=== PATIENT | male | born 1985 | race Caucasian/White ===

== ENCOUNTER → 2016-06-15 | Outpatient (CLI) | payer BC ==
--- NOTE | 2016-06-18 09:08 | MR ---
EXAMINATION: MRI of the left knee HISTORY: Sprain COMPARISON: Radiographs dated 06/14/2016 TECHNIQUE: Multiplanar and multisequence images obtained through the left knee without contrast. FINDINGS: The patellar and quadriceps tendons are intact. The ACL is torn. PCL demonstrates increase d signal however overall appears intact. There is a complex tear of the posterior horn of the medial meniscus extending into the body. There is also a vertical radial tear of the anterior horn of the medial meniscus near the fibers insertion. There is a vertical tear of the posterior horn of the lat eral meniscus with a oblique component within the body. There is a moderate articular cartilage defe ct within the lateral compartment measuring 1 cm. There is a small joint effusion. Mild articular ca rtilage irregularity is noted within the patellofemoral compartment along the medial facet. The medi al collateral ligament appears intact, however there is moderate adjacent edema. There is edema hilario g the lateral aspect of the tibial plateau along the insertion of the anterior lateral band of the l ateral collateral ligament, this could represent a Segond type injury. The lateral collateral ligame ntous otherwise intact. There is also mild bone marrow edema within the fibular head. IMPRESSION: 1. ACL tear. 2. Complex tear of the medial meniscus with likely disruption of the fibrous attachment of the anter ior horn. 3. Posterior to body tear of the lateral meniscus. 4. Likely a Segond type injury along the lateral tibial plateau. 5. Point centimeter cartilage defect within the lateral compartment with mild buckling of the underl chris cortex of the lateral condyle. 6. Mild bone marrow edema within the fibular head. 7. Small to moderate joint effusion. 8. Mild to moderate sprain of the medial collateral ligament.
== END ==
LOC: MW.MRI 12:08
PROVIDERS: ATTEND Orthopaedic Surgery
DX: M25.562 Pain in left knee (principal); S83.92XA Sprain of unspecified site of left knee, initial encounter
CPT/HCPCS: 73721-26-LT; 73721-LT

== ENCOUNTER 2016-11-29 06:25 | Day surgery (SDC) | payer BC ==
[~2016-11-29 06:25] MED LIST: Lactated Ringers 1,000 ML IV SCH; ceFAZolin 2 GM in Premix Bag 1 BAG IV SCH
[2016-11-29] MEDS ORDERED: fentaNYL 100 MCG/2 ML SDV ONE ×2 (07:20→10:18)
[2016-11-29] MEDS ORDERED: Propofol 200 MG/20 ML SDV ONE ×2 (07:20→10:17)
[2016-11-29] MEDS ORDERED: Lidocaine 2% 5 ML SDV ONE (07:20)
[2016-11-29] MEDS ORDERED: Midazolam 1 MG/ML 2 ML SDV ONE (07:21)
[2016-11-29] MEDS ORDERED: HYDROmorphone 2 MG/ML Syringe ONE (07:30)
--- NOTE | 2016-11-29 07:31 | PCM.PREANE ---
Preanesthetic Assessment - Procedure Proposed Procedure: Knee arthroscopy - Anesthesia/Transfusion/Family Hx Anesthesia History: Prior Anesthesia Without Reaction Family History of Anesthesia Reaction: No Transfusion History: No Prior Transfusion(s) Intubation History: Unknown - Review of Systems General: No Symptoms Pulmonary: No Symptoms Cardiovascular: No Symptoms Gastrointestinal: No Symptoms Neurological: Difficulty Walking (pain in knee) Other: Reports: None - Physical Assessment NPO Status Date: 11/28/16 NPO Status Time: 23:00 Height: 5 ft 11 in Weight: 200 lb ASA Class: 1 Mental Status: Alert & Oriented x3 Dentition: Reports: Normal Dentition Thyro-Mental Finger Breadths: 3 Mouth Opening Finger Breadths: 3 ROM/Head Extension: Full Lungs: Clear to Auscultation, Normal Respiratory Effort Cardiovascular: Regular Rate, Regular Rhythm - Allergies Allergies/Adverse Reactions: Allergies Allergy/AdvReac Type Severity Reaction Status Date / Time No Known Allergies Allergy Verified 11/27/16 11:29 - Blood Blood Available: No Product(s) Available: None - Acknowledgements Anesthesia Type Planned: General Anesthesia (LMA) Pt an Appropriate Candidate for the Planned Anesthesia: Yes Alternatives and Risks of Anesthesia Discussed w Pt/Guardian: Yes Pt/Guardian Understands and Agrees with Anesthesia Plan: Yes PreAnesthesia Questionnaire - Past Health History Medical/Surgical History: Denies Medical/Surgical History - Past Surgical History Head Surgeries/Procedures: Reports: None HEENT Surgical History: Reports: Oral Surgery Other HEENT Surgeries/Procedures: wisdom teeth extraction - SUBSTANCE USE Smoking Status *Q: Never Smoker Recreational Drug Use History: No - HOME MEDS Home Medications: Home Meds . [No Known Home Meds] 11/27/16 [History] - CURRENT (IN HOUSE) MEDS Current Meds: Current Medications Hydrocodone Bitart/Acetaminophen ([place] 325-10 Mg) 1 - 2 tab PO Q4H PRN PRN Reason: Pain Cefazolin Sodium/Dextrose 2 gm (/ Premix) 50 mls @ 100 mls/hr IV ONCALL JOHNNY Lactated Ringer's (Ringers, Lactated) 1,000 mls @ 100 mls/hr IV ASDIRECTED JOHNNY Ketorolac Tromethamine (Toradol) 10 mg PO Q6H PRN PRN Reason: Pain Stop: 12/04/16 08:01 Discontinued Medications Fentanyl (Sublimaze) Confirm Administered Dose 300 mcg .ROUTE .STK-MED ONE Stop: 11/29/16 07:21 Lidocaine (Xylocaine-Mpf 2%) Confirm Administered Dose 10 ml .ROUTE .STK-MED ONE Stop: 11/29/16 07:21 Midazolam HCl (Versed 1 Mg/Ml) Confirm Administered Dose 2 mg .ROUTE .STK-MED ONE Stop: 11/29/16 07:22 Propofol (Diprivan 20 Ml) Confirm Administered Dose 400 mg .ROUTE .STK-MED ONE Stop: 11/29/16 07:21
[2016-11-29] MEDS ORDERED: Bupivacaine 0.5% 30 ML SDV ONE (07:53)
[2016-11-29] MEDS ORDERED: Lidocaine 1% 20 ML MDV ONE (07:53)
[2016-11-29] MEDS ORDERED: Acetaminophen/HYDROcodone 325-10 MG Tab PO PRN (08:00)
[2016-11-29] MEDS ORDERED: Ketorolac 10 MG Tab PO PRN (08:00)
--- NOTE | 2016-11-29 08:27 | PCM.OPNOTE ---
- General Post-Op/Procedure Note Date of Surgery/Procedure: 11/29/16 Operative Procedure(s): Left knee arthroscopy with partial medial and lateral menisectomy and arthrscopically aided ACL reconstruction with allograft Post-Op Diagnosis: Left knee medial and lateral meniscus tear, ACL tear Anesthesia Technique: General ET Tube Primary Surgeon: Sarai Almeida Early Childhood Coordinator: Raymnod Kapoor in mLs: 10 Condition: Good Free Text/Narrative:: tt=74 min #
[2016-11-29] MEDS ORDERED: Succinylcholine/Normal Saline 200 MG/10 ML Syringe ONE (09:06)
[2016-11-29] MEDS ORDERED: HYDROmorphone 2 MG/ML Syringe IVPUSH ONE (10:44)
[2016-11-29] MEDS ORDERED: fentaNYL 100 MCG/2 ML SDV IVPUSH PRN (10:44)
--- NOTE | 2016-11-29 12:37 | PCM.POSTAN ---
POST ANESTHESIA ASSESSMENT - MENTAL STATUS Mental Status: Alert, Oriented - RESPIRATORY Respiratory Status: Respiratory Rate WNL, Airway Patent, O2 Saturation Stable - CARDIOVASCULAR CV Status: Pulse Rate WNL, Blood Pressure Stable - GASTROINTESTINAL GI Status: No Symptoms - POST OP HYDRATION Hydration Status: Adequate & Stable
--- NOTE | 2016-11-29 12:38 | PCM48HPAN ---
Post Anesthesia Note - EVALUATION WITHIN 48HRS OF ANESTHETIC Vital Signs in Normal Range: Yes Patient Participated in Evaluation: Yes Respiratory Function Stable: Yes Airway Patent: Yes Cardiovascular Function Stable: Yes Hydration Status Stable: Yes Pain Control Satisfactory: Yes Nausea and Vomiting Control Satisfactory: Yes Mental Status Recovered: Yes
--- NOTE | 2016-11-29 12:55 | OR ---
SURGEON: Sarai Almeida MD DATE OF PROCEDURE: 11/29/2016 PREOPERATIVE DIAGNOSES: 1. Left knee medial meniscus tear. 2. Left knee ACL tear. POSTOPERATIVE DIAGNOSIS: 1. Left knee medial meniscus tear. 2. Left knee ACL tear. 3. Left knee lateral meniscus tear. PROCEDURE: Left knee arthroscopy with: 1. Partial medial and lateral meniscectomies. 2. Arthroscopically aided anterior cruciate ligament reconstruction using allograft. REFRIGERATION MANAGER: Raymond Kapoor PA-C. ANESTHESIA: General. ESTIMATED BLOOD LOSS: 10 mL. TOURNIQUET TIME: 74 minutes. COMPLICATIONS: None. DVT PROPHYLAXIS: PAS boot to the nonoperative leg. IMPLANTS USED: An Arthrex TightRope ACL Endobutton on the femur and an Arthrex tightrope Endobutton with a small plate on the tibia. BRIEF HISTORY: Kip is a 31-year-old male, who sustained an injury to his left knee. An MRI did show a tear of the medial meniscus as well as the anterior cruciate ligament. He did attend physical therapy for rehab. He continued to have pain and instability. Due to his lack of response to conservative treatment, I did recommend surgical intervention. The risks and goals of the procedure were discussed with the patient and were documented preoperatively. He agreed to proceed. DESCRIPTION OF PROCEDURE: The patient was properly identified and brought to the operating room. He was transferred from the OR cart and placed on the operating table in a supine position. General anesthesia was administered. After adequate anesthesia was obtained, a well-padded tourniquet was applied to the left lower extremity. The left lower extremity was then prepped in standard fashion using ChloraPrep solution. It was then sterilely draped. A time-out was performed to ensure correct site and procedure. Preoperative antibiotics were given. The surgical site had been marked preoperatively. An Esmarch was used to exsanguinate the left lower extremity and the tourniquet was inflated to 250 mmHg. A lateral portal arthrotomy was established. Blunt trocar and cannula were introduced into the suprapatellar pouch. Camera, inflow, and outflow were assembled. No significant synovitis was noted. The patellofemoral joint was visualized. No significant degenerative changes were noted. The patella appeared to track centrally. I then extended down the lateral and medial gutter. No loose bodies were identified. I then entered the medial compartment. A medial portal arthrotomy was established. A blunt probe was inserted. He did have a large degenerative radial tear of the posterior horn of the medial meniscus. This is not amenable to repair. Using a combination of biters and shaver, this was resected back to a stable remnant. Only a thin peripheral rim remained along the posterior horn. The joint surfaces showed no significant degenerative findings. I then entered the notch. The ACL was visualized. It appeared to be scarred to the PCL. There was no attachment to the lateral femoral condyle. The PCL was visualized and found to be intact. Using a shaver and electrocautery, the ACL was removed. Its stump was preserved to maintain proprioceptive fibers. I then entered the lateral compartment. Again noted was a degenerative complex meniscus tear. This was not amenable to repair as it was quite central. Again, using a combination of biters and shaver, this was resected back to a stable remnant. It was probed and the remainder appeared stable. The joint surfaces showed no significant degenerative findings. I then turned my attention back to the notch. The graft had been prepared in the usual fashion on the back table. It did measure 9.5 mm in diameter. The tibial guide was then placed. It was placed approximately 7 mm anterior to the PCL, even with the anterior horn of the lateral meniscus. An incision was made over the medial proximal tibia. Subcutaneous tissues were dissected down to the level of the fascia. The fascia and periosteum were then incised and the soft tissue was elevated from the bone. The guide was then placed flush with this. A guide pin was then placed. It was felt that the guide pin was in acceptable position. This was then over-reamed with a 10 mm reamer. A cannula was then placed to maintain fluid. We then turned our attention to the femur. A 5.0 mm ellie was used to perform a small notchplasty to aid with visualization. I was able to clear the soft tissue from the posterior aspect of the knee, which provided good visualization of the entire lateral femoral condyle. The femoral guide was then placed. A small incision was made along the lateral aspect of the distal thigh. The IT band was spread and the cannula was placed. The flip cutter guide pin was then placed. The guide was removed. I was able to visualize the anticipated tunnel. I felt that it was in acceptable position as it was quite posterior and inferior. We then flipped the cutter and a 27 mm tunnel was drilled. The FlipCutter was then removed. A guided suture was then placed through the tibial tunnel to assist with passage of the graft. The cannulas were then removed. The graft was then passed through the tibial tunnel into the femur. The C-arm confirmed that the endo-button had flipped along the lateral cortex of the distal femur. The graft was then tensioned into the femoral canal approximately 20 mm. We were able to visualize this directly with the camera. With pulling on the femoral side of the graft, the graft appeared well fixed. It was taken through a range of motion and there was no pistoning or impingement noted. The leg was then brought into a fully extended position. The soft tissue was cleared around the tibial tunnel. The TightRope button was then placed onto the sutures and the TightRope was then tensioned. The button was flush with the proximal tibia. A Jose Maria exam was then performed on the knee, which showed good stability. The arthroscopic camera was then placed back in. I was able to visualize the graft and it appeared to be well fixed. A probe was used to confirm adequate tension. Instruments were then removed from the knee. 0 Vicryl was used to close over the proximal tibia. The subcutaneous tissues were closed with 2-0 Vicryl and the skin was closed with a running Monocryl suture. Steri-Strips and Benzoin were placed. 3-0 nylon was used to close the remainder of the wounds. Tourniquet was then deflated. Xeroform gauze was placed over the wounds and a bulky dressing was applied. He was placed in a locked hinge knee brace. He was awakened from his anesthetic and transferred back to the operating room cart. He was brought to recovery room in stable condition. All needle and sponge counts were correct. RIC / SOULEYMANE /[id number] HEENA
[2016-11-29 12:56] VITALS: BP 115/61
--- NOTE | 2016-11-30 08:22 | CR ---
EXAMINATION: Left knee HISTORY: ACL repair COMPARISON: 06/15/2016 TECHNIQUE: Single view FINDINGS/IMPRESSION: A single operative control film demonstrates postsurgical changes secondary to A CL repair.
== END 2016-11-29 13:20 | disposition home or self-care (01) ==
LOC: MW.SDS 06:25
PROVIDERS: ATTEND Orthopaedic Surgery
DX: S83.242A Other tear of medial meniscus, current injury, left knee, initial encounter (principal); S83.282A Other tear of lateral meniscus, current injury, left knee, initial encounter; S83.512A Sprain of anterior cruciate ligament of left knee, initial encounter; X58.XXXA Exposure to other specified factors, initial encounter; Z98.890 Other specified postprocedural states; Z79.899 Other long term (current) drug therapy
CPT/HCPCS: 29880; 29888; 76000; J1170; J2250; J3010; J7120; 01400; 88304; C1762; C1776; J2704

== ENCOUNTER 2017-10-25 16:31 | Emergency (ER) | payer BC ==
[2017-10-25] MEDS ORDERED: Bupivacaine 0.5% 10 ML SDV INJECT ONE (16:37)
[2017-10-25] MEDS ORDERED: Diphtheria,Pertussis(Acell),Tetanus Vaccine 0.5 ML Syringe IM ONE (16:37)
--- NOTE | 2017-10-25 16:40 | EDM.PDOC ---
ED HPI GENERAL MEDICAL PROBLEM - General Chief Complaint: Skin Complaint Stated Complaint: HOOK IN PT'S FINGER Time Seen by Provider: 10/25/17 16:35 Source of Information: Reports: Patient History Limitations: Reports: No Limitations - History of Present Illness INITIAL COMMENTS - FREE TEXT/NARRATIVE: History of present illness: []Patient is a left-handed male who accidentally shot a nail into his right thumb with a nail gun. The nail has a small head on it and it is underneath the nail plate. The nail is protruding through the volar aspect of his thumb. Review of systems: As per history of present illness and below otherwise all systems reviewed and negative. Past medical history: As per history of present illness and as reviewed below otherwise noncontributory. Surgical history: As per history of present illness and as reviewed below otherwise noncontributory. Social history: No reported history of drug or alcohol abuse. Family history: As per history of present illness and as reviewed below otherwise noncontributory. Physical exam: General: Well developed, well nourished in NAD HEENT: Atraumatic, normocephalic, pupils reactive, negative for conjunctival pallor or scleral icterus, mucous membranes moist, throat clear, neck supple, nontender, trachea midline. Lungs: Clear to auscultation, breath sounds equal bilaterally, chest nontender. Heart: S1S2, regular, negative for clicks, rubs, or JVD. Abdomen: Soft, nondistended, nontender. Negative for masses or hepatosplenomegaly. Negative for costovertebral tenderness. Pelvis: Stable nontender. Genitourinary: Deferred. Rectal: Deferred. Extremities: 2 inch nail through his nail plate and volar thumb , negative for cords or calf pain. Neurovascular unremarkable. Neuro: Awake, alert, oriented. Cranial nerves II through XII unremarkable. Cerebellum unremarkable. Motor and sensory unremarkable throughout. Exam nonfocal. Skin:warm and dry Diagnostics: X-ray shows a nail through bone Therapeutics: Ancef 1 g IM, digital block, metal nail removed after lifting the nail plate ED Course: Unremarkable Impression: Removal of nail from right thumb Prescriptions: Tramadol, Keflex Plan: Take meds as directed, follow up with Dr. Gonsalves if needed, return to ER if symptoms worsen or change. Definitive disposition and diagnosis as appropriate pending reevaluation and review of above. Right 1-Thumb Pain Score (Numeric/FACES): 5 - Related Data Allergies Allergy/AdvReac Type Severity Reaction Status Date / Time No Known Allergies Allergy Verified 10/25/17 16:37 Home Meds: Home Meds cephALEXin [Keflex] 500 mg PO Q8H #21 cap 10/25/17 [Rx] traMADol HCl [Tramadol HCl] 50 mg PO Q6H PRN #16 tablet 10/25/17 [Rx] Past Medical History - Past Health History Medical/Surgical History: Denies Medical/Surgical History - Past Surgical History Head Surgeries/Procedures: Reports: None HEENT Surgical History: Reports: Oral Surgery Other HEENT Surgeries/Procedures: wisdom teeth extraction ED ROS GENERAL - Review of Systems Review Of Systems: ROS reveals no pertinent complaints other than HPI. ED EXAM, SKIN/RASH Exam: See Below (See history of present illness) ED SKIN PROCEDURES - Foreign Body Removal Indication:: Nail through the bone in right thumb Performing Doctor:: Berenice Estes Foreign Body Other Location Comment:: Straight nail embedded in right distal thumb with nail gun Anesthesia Type: Other (see below) (Digital block) Complications:: No Comments:: Patient was given a digital block with 1% lidocaine without and half percent bupivacaine without, the distal nail plate was lifted and the head of the nail was pulled and removed from the bone. The cuticle remained intact. No complications. Course - Vital Signs Last Recorded V/S: Last Vital Signs Temp 97.0 F 10/25/17 16:34 Pulse 107 H 10/25/17 16:34 Resp 18 10/25/17 16:34 BP 127/81 10/25/17 16:34 Pulse Ox 95 10/25/17 16:34 - Orders/Labs/Meds Orders: Active Orders 24 hr Category Date Time Status Vaccines to be Administered [RC] PER UNIT ROUTINE Care 10/25/17 16:38 Active Fingers Thumb Rt F5 [CR] Stat Exams 10/25/17 16:36 Taken Meds: Medications Discontinued Medications Generic Name Dose Route Start Last Admin Trade Name Freq PRN Reason Stop Dose Admin Bupivacaine HCl 10 ml 10/25/17 16:37 10/25/17 17:00 Sensorcaine-Mpf 0.5% INJECT 10/25/17 16:38 2 ml ONETIME ONE Administration Bupivacaine HCl Confirm 10/25/17 17:19 Sensorcaine-Mpf 0.5% Administered 10/25/17 17:20 Dose 10 ml .ROUTE .STK-MED ONE Cefazolin Sodium 1 gm 10/25/17 17:38 Ancef IM 10/25/17 17:39 ONETIME ONE Diphtheria/Tetanus/Acell Pertussis 0.5 ml 10/25/17 16:37 10/25/17 17:00 Adacel IM 10/25/17 16:38 0.5 ml .ONCE ONE Administration Lidocaine HCl Confirm 10/25/17 17:19 Xylocaine-Mpf 1% Administered 10/25/17 17:20 Dose 5 mls @ as directed .ROUTE .STK-MED ONE Sterile Water Confirm 10/25/17 17:48 Sterile Water For Injection Administered 10/25/17 17:49 Dose 20 mls @ as directed .ROUTE .STK-MED ONE Lidocaine HCl 5 ml 10/25/17 16:37 10/25/17 17:00 Xylocaine-Mpf 1% INJECT 10/25/17 16:38 2 ml ONETIME ONE Administration Sterile Water 2.5 ml 10/25/17 17:49 Sterile Water For Injection INJECT 10/25/17 17:50 NOW STA Departure - Departure Time of Disposition: 17:56 Disposition: Home, Self-Care 01 Condition: Good Clinical Impression: Injury of thumb by nail gun Qualifiers: Encounter type: initial encounter Laterality: right Qualified Code(s): S69.91XA - Unspecified injury of right wrist, hand and finger(s), initial encounter; W29.4XXA - Contact with nail gun, initial encounter - Discharge Information *PRESCRIPTION DRUG MONITORING PROGRAM REVIEWED*: No Referrals: PCP,None [Primary Care Provider] - Forms: ED Department Discharge Additional Instructions: The following information is given to patients seen in the emergency department who are being discharged to home. This information is to outline your options for follow-up care. We provide all patients seen in our emergency department with a follow-up referral. The need for follow-up, as well as the timing and circumstances, are variable depending upon the specifics of your emergency department visit. If you don't have a primary care physician on staff, we will provide you with a referral. We always advise you to contact your personal physician following an emergency department visit to inform them of the circumstance of the visit and for follow-up with them and/or the need for any referrals to a consulting specialist. The emergency department will also refer you to a specialist when appropriate. This referral assures that you have the opportunity for follow-up care with a specialist. All of these measure are taken in an effort to provide you with optimal care, which includes your follow-up. Under all circumstances we always encourage you to contact your private physician who remains a resource for coordinating your care. When calling for follow-up care, please make the office aware that this follow-up is from your recent emergency room visit. If for any reason you are refused follow-up, please contact the [facility] Emergency Department at and asked to speak to the emergency department charge nurse. Take Keflex and tramadol as directed follow-up with plastics/hand surgery if needed return to ER if symptoms worsen or change. [facility] Specialty Care - Plastic Surgery Professional Building [address] [place] [address], [address] [place] [address] - My Orders Last 24 Hours: My Active Orders 10/25/17 16:36 Fingers Thumb Rt F5 [CR] Stat 10/25/17 16:38 Vaccines to be Administered [RC] PER UNIT ROUTINE - Assessment/Plan Last 24 Hours: My Active Orders 10/25/17 16:36 Fingers Thumb Rt F5 [CR] Stat 10/25/17 16:38 Vaccines to be Administered [RC] PER UNIT ROUTINE
[2017-10-25 16:46] VITALS: BP 127/81
[2017-10-25] MEDS ORDERED: Bupivacaine 0.5% 10 ML SDV ONE (17:19)
[2017-10-25] MEDS ORDERED: ceFAZolin 1 GM Vial IM ONE (17:38)
[2017-10-25] MEDS ORDERED: Water For Injection, Sterile 20 ML ONE (17:48)
[2017-10-25] MEDS ORDERED: Water For Injection, Sterile 20 ML SDV INJECT STA (17:49)
[2017-10-25] MEDS ORDERED: Bacitracin Oint 1 GM U/D Packet TOP ONE (18:03)
--- NOTE | 2017-10-28 15:01 | CR ---
EXAM DATE: 10/25/17 PATIENT'S AGE: 31 Patient: [place] BARRERA Facility: [place], [place] Site . Site : 1985 Study: XRay Extremity Right Thumb [id number]/10/2018 5:17:55 PM Ordering Physician: Doctor Ulloa Final Report: INDICATION: Nail in thumb from nail gun. TECHNIQUE: Finger radiographs 3 views COMPARISON: None FINDINGS: Linear metallic density is identified at distal margin of right 1st distal phalanx, consistent with nail. Metallic density measures approximately 2.9 centimeters in length, traversing distal phalanx. No fracture deformity. No additional radiopaque foreign body. IMPRESSION: 1. Nail identified at distal margin of right 1st distal phalanx. Dictated by Wilfrid Fuentes MD @ 10/25/2017 6:01:10 PM Dictated by: Wilfrid Fuentes MD @ 10/25/2017 18:01:15 (Electronic Signature) Report Signed by Proxy. HEENA
== END 2017-10-25 18:15 | disposition home or self-care (01) ==
LOC: MW.ED 16:31
DX: S60.351A Superficial foreign body of right thumb, initial encounter (principal); Z23 Encounter for immunization; W45.0XXA Nail entering through skin, initial encounter
CPT/HCPCS: 64450; 73140; 90471; 90715; 96372; 99283; J0690; J3490